=== PATIENT | male | born 1980 | race Caucasian/White ===

== ENCOUNTER 2018-12-20 19:20 | Emergency (ER) | payer BC ==
[2018-12-20] MEDS ORDERED: LORazepam 2 MG/ML SDV IM ONE (19:57)
--- NOTE | 2018-12-20 20:16 | EDM.PDOCBH ---
ED HPI GENERAL MEDICAL PROBLEM - General Chief Complaint: Behavioral/Psych Stated Complaint: MENTAL ILLNESS Time Seen by Provider: 12/20/18 19:29 Source of Information: Reports: Patient History Limitations: Reports: No Limitations - History of Present Illness INITIAL COMMENTS - FREE TEXT/NARRATIVE: Presents with his the patient reports an increase in his baseline anxiety. His symptoms include palpitations, easily agitated impulsive, racing thoughts. He has seen a provider a couple of times and was started on Lexapro, Effexor and one other medication all of which were stopped due to side effects. Things came to ahead today and he was not able to handle they anxiety and he was concerned that it was causing marital problems. He is otherwise healthy without chronic medical problems. He denies depressive symptoms, suicidal or self-harm ideations. chest Pain Score (Numeric/FACES): 6 - Related Data Allergies Allergy/AdvReac Type Severity Reaction Status Date / Time No Known Allergies Allergy Verified 12/20/18 19:32 Home Meds: Home Meds LORazepam [Ativan] 0.5 mg PO BID PRN #14 tablet 12/20/18 [Rx] Venlafaxine [Effexor] 75 mg PO BEDTIME 12/20/18 [History] Past Medical History Psychiatric History: Reports: Autism, Depression - Infectious Disease History Infectious Disease History: Reports: Chicken Pox Social & Family History - Family History Cardiac: Reports: CAD - Tobacco Use Smoking Status *Q: Current Every Day Smoker Years of Tobacco use: 18 Packs/Tins Daily: 1 - Caffeine Use Caffeine Use: Reports: Coffee, Soda - Alcohol Use Days Per Week of Alcohol Use: 3 Number of Drinks Per Day: 6 Total Drinks Per Week: 18 - Recreational Drug Use Recreational Drug Use: No ED ROS GENERAL - Review of Systems Review Of Systems: ROS reveals no pertinent complaints other than HPI. ED EXAM, BEHAVIORAL HEALTH - Physical Exam Exam: See Below Exam Limited By: No Limitations General Appearance: Alert, Mild Distress Ears: Normal External Exam Nose: Normal Inspection Throat/Mouth: Normal Inspection Head: Atraumatic, Normocephalic Neck: Normal Inspection Respiratory/Chest: No Respiratory Distress, Lungs Clear, Normal Breath Sounds Cardiovascular: Normal Peripheral Pulses, Regular Rate, Rhythm GI/Abdominal: Soft Back Exam: Normal Inspection Extremities: Normal Inspection Neurological: Alert, Oriented x 3 Psychiatric: Alert, Normal Cognition, Tangential Thoughts, Other (Anxiety) Skin Exam: Warm, Dry, Intact, Normal color, No rash COURSE, BEHAVIORAL HEALTH COMP - Course Vital Signs: Last Vital Signs Temp 36.4 C 12/20/18 19:27 Pulse 108 H 12/20/18 19:27 Resp 18 12/20/18 19:27 BP 186/122 H 12/20/18 19:27 Pulse Ox 97 12/20/18 19:27 Orders, Labs, Meds: Medications Discontinued Medications Generic Name Dose Route Start Last Admin Trade Name Marilu PRN Reason Stop Dose Admin Lorazepam 2 mg 12/20/18 19:57 12/20/18 20:03 Ativan IM 12/20/18 19:58 2 mg ONETIME ONE Administration Departure - Departure Time of Disposition: 20:15 Disposition: Home, Self-Care 01 Condition: Good Clinical Impression: Anxiety - Discharge Information Referrals: PCP,None [Primary Care Provider] - Molly Bowman KAIAKO KOHANGA REO [Emergency Midlevel Provider] - Additional Instructions: 1. Ativan 0.5 mg twice daily as needed for anxiety 2. Follow-up in the clinic: [facility] [phone]
== END 2018-12-20 20:42 | disposition home or self-care (01) ==
LOC: MW.ED 19:20
DX: F41.9 Anxiety disorder, unspecified (principal); F32.9 Major depressive disorder, single episode, unspecified; F17.210 Nicotine dependence, cigarettes, uncomplicated; Z79.899 Other long term (current) drug therapy
CPT/HCPCS: 96372; 99283; J2060